=== PATIENT | female | born 1985 | race Caucasian/White ===

== ENCOUNTER → 2016-09-19 | Outpatient (CLI) | payer BC ==
--- NOTE | 2016-09-19 13:13 | CT ---
EXAMINATION TYPE: CT chest w con DATE OF EXAM: 09/19/2016 1:00 PM COMPARISON: CT angiogram of the chest August 2015 HISTORY: lung nodule CT DLP: 234.5 mGycm Automated exposure control for dose reduction was used. CONTRAST: CT scan of the chest is performed with IV Contrast, patient injected with 100 mL of Omnipaque 300. FINDINGS: LUNGS: There is no significant interval change. Stable nodularity right lower lobe subcentimeter in s ize. No mediastinal, axillary, or hilar adenopathy. Aorta shows a stable appearance. Upper abdomen shows postcholecystectomy change. Liver shows low atte nuation possibly due to fatty infiltration. IMPRESSION: Post cholecystectomy. Stable subcentimeter lung nodules are likely benign.
== END | disposition home or self-care (01) ==
LOC: RADCTMAIN 12:16
PROVIDERS: ATTEND Family Medicine
DX: R91.8 Other nonspecific abnormal finding of lung field (principal)
CPT/HCPCS: 71260; Q9967

== ENCOUNTER → 2021-01-24 | Outpatient (CLI) | payer BC ==
--- NOTE | 2021-01-24 08:36 | USB ---
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 Findings: The right breast was scanned in all 4 quadrants, the retroareolar region and axilla. Scattered cysts are noted in the right breast. In the right breast at 12:00, there is a 0.5 x 0.4 x 0 .5 cm cyst which contains some internal echoes and follow-up ultrasound is recommended in 6 months. IMPRESSION: Follow-up ultrasound recommended in 6 months for the likely complicated cyst in the right breast at 1 2:00. BI-RADS 3, probably benign.
--- NOTE | 2021-01-24 08:53 | MM ---
Reason for exam: clinical finding. Baseline mammogram. History: Family history of breast cancer in maternal aunt at age 50. Reductions of both breasts, May 2020. Took hormonal contraceptives beginning at age 14. Physical Findings: Nurse did not find any significant physical abnormalities on exam. MG 3D Diag Mammo W/Cad MARY Bilateral CC and MLO view(s) were taken. XCCL view(s) were taken of the right breast. The breast tissue is heterogeneously dense. This may lower the sensitivity of mammography. Post operative changes. These results were verbally communicated with the patient and result sheet given to the patient on 01/24/21. ASSESSMENT: Incomplete: need additional imaging evaluation, BI-RAD 0 RECOMMENDATION: Ultrasound of the right breast is recommended as per order in this patient with DCIS identified in the right breast on bilateral breast reduction. MTDD
== END | disposition home or self-care (01) ==
LOC: RADMAMWWP 06:59
PROVIDERS: ATTEND Internal Medicine
DX: N60.01 Solitary cyst of right breast (principal); Z80.3 Family history of malignant neoplasm of breast; Z79.3 Long term (current) use of hormonal contraceptives
CPT/HCPCS: 77062; 77066

== ENCOUNTER → 2021-06-05 | Outpatient (CLI) | payer BC ==
--- NOTE | 2021-06-05 14:57 | US ---
EXAMINATION TYPE: US liver DATE OF EXAM: 06/05/2021 COMPARISON: US 2016 CLINICAL HISTORY: R94.5 ABN LIVER FUNCTION TEST. EXAM MEASUREMENTS: Liver Length: 13.7 cm CBD: 0.8 cm Right Kidney: 9.9 x 4.2 x 4.0 cm Pancreas: obscured by overlying midline bowel gas Liver: wnl Gallbladder: surgically absent Evidence for sonographic Soto's sign: no CBD: wnl Right Kidney: wnl IMPRESSION: 1. No suspicious acute abnormality. 2. Exam is limited due to bowel gas.
== END | disposition home or self-care (01) ==
LOC: RADUSWWP 07:05
PROVIDERS: ATTEND Internal Medicine
DX: R94.5 Abnormal results of liver function studies (principal)
CPT/HCPCS: 76705